=== PATIENT | female | born 1960 | race Caucasian/White ===

== ENCOUNTER 2016-09-06 16:42 | Emergency (ER) | payer MEDICARE, MEDICAID ==
[2016-09-06] MEDS ORDERED: DEXTROSE 50% 50 ML ONE (16:55)
== END 2016-09-07 02:00 | disposition home or self-care (01) ==
LOC: ER 16:42
DX: R53.1 Weakness (principal); E11.649 Type 2 diabetes mellitus with hypoglycemia without coma; Z79.4 Long term (current) use of insulin; Z79.899 Other long term (current) drug therapy; J44.9 Chronic obstructive pulmonary disease, unspecified; G20 Parkinson's disease; E78.00 Pure hypercholesterolemia, unspecified; F31.9 Bipolar disorder, unspecified; I11.0 Hypertensive heart disease with heart failure; I50.9 Heart failure, unspecified; F17.210 Nicotine dependence, cigarettes, uncomplicated
CPT/HCPCS: 36415; 71020; 80053; 81001; 82553; 82947; 84484; 85025; 93005; 96374